=== PATIENT | female | born 1960 | race Two or more races ===

== ENCOUNTER 2018-06-09 11:17 | Outpatient (CLI) | payer OTHER | END 2018-06-09 12:00 | disposition home or self-care (01) | LOC: NUCLEAR 11:17 | DX: M81.0 Age-related osteoporosis without current pathological fracture (principal) ==

== ENCOUNTER → 2018-06-09 | Outpatient (CLI) | payer OTHER | END | disposition home or self-care (01) | LOC: MAMO-SONO 10:15 | DX: Z12.31 Encounter for screening mammogram for malignant neoplasm of breast (principal); N60.11 Diffuse cystic mastopathy of right breast; N60.12 Diffuse cystic mastopathy of left breast ==

== ENCOUNTER 2018-08-15 14:04 | Outpatient (CLI) | payer OTHER | END 2018-08-15 14:14 | disposition home or self-care (01) | LOC: RAD 14:04 | DX: M79.671 Pain in right foot (principal) ==

== ENCOUNTER 2018-12-01 12:17 | Outpatient (CLI) | payer OTHER | END 2018-12-01 13:00 | disposition home or self-care (01) | LOC: SONOGRAMA 12:17 | DX: M25.571 Pain in right ankle and joints of right foot (principal) ==

== ENCOUNTER 2020-11-13 10:14 | Outpatient (CLI) | payer OTHER | END 2020-11-13 10:45 | disposition home or self-care (01) | LOC: TOM 10:14 | PROVIDERS: ATTEND Urology | DX: R31.0 Gross hematuria (principal) ==

== ENCOUNTER 2021-01-04 02:25 | Emergency (ER) | payer OTHER ==
[~2021-01-04] VITALS: Ht 152.4 cm; Wt 78.0 kg
[2021-01-04] MEDS ORDERED: HYZAAR 100-12.1 EACH (02:43)
[2021-01-04] MEDS ORDERED: NORVASC5 MG (02:43)
[2021-01-04] MEDS ORDERED: BACTRIM DS TAB1 EACH PO (05:11)
[2021-01-04] MEDS ORDERED: TAMS0.4C PO (05:11)
[2021-01-04] MEDS ORDERED: KETO10TA2 PO (05:11)
[2021-01-04] MEDS ORDERED: CIPRO500 MG PO (05:13)
== END 2021-01-04 05:47 | disposition home or self-care (01) ==
LOC: ER 02:25
DX: N20.1 Calculus of ureter (principal); M54.5 Low back pain

== ENCOUNTER 2021-01-06 13:12 | Day surgery (SDC) | payer OTHER ==
[~2021-01-06 13:12] MED LIST: BACTRIM DS TAB1 EACH PO; CIPRO500 MG PO; HYZAAR 100-12.1 EACH; KETO10TA2 PO; NORVASC5 MG; TAMS0.4C PO
== END 2021-01-06 22:30 | disposition home or self-care (01) ==
LOC: CIR.AMB 13:12
PROVIDERS: ATTEND Urology
DX: N20.1 Calculus of ureter (principal); Z20.822 Contact with and (suspected) exposure to COVID-19

== ENCOUNTER → 2021-01-15 08:22 | Outpatient (CLI) | payer OTHER | END | disposition home or self-care (01) | LOC: LAB 08:22 | PROVIDERS: ATTEND Urology | DX: N20.0 Calculus of kidney (principal) ==

== ENCOUNTER 2021-01-30 09:19 | Outpatient (CLI) | payer OTHER | END 2021-01-30 09:25 | disposition home or self-care (01) | LOC: LAB 09:19 | PROVIDERS: ATTEND Urology | DX: N20.1 Calculus of ureter (principal) ==

== ENCOUNTER 2021-03-12 08:31 | Outpatient (CLI) | payer OTHER | END 2021-03-12 08:32 | disposition home or self-care (01) | LOC: LAB 08:31 | PROVIDERS: ATTEND Urology | DX: N20.1 Calculus of ureter (principal) ==

== ENCOUNTER 2021-07-01 09:14 | Outpatient (CLI) | payer OTHER | END 2021-07-01 09:30 | disposition home or self-care (01) | LOC: MAMO-SONO 09:14 | PROVIDERS: ATTEND Internal Medicine Hematology & Oncology | DX: Z80.3 Family history of malignant neoplasm of breast (principal) ==

== ENCOUNTER 2021-07-07 13:34 | Outpatient (CLI) | payer OTHER | END 2021-07-07 13:51 | disposition home or self-care (01) | LOC: RAD 13:34 | PROVIDERS: ATTEND Specialist | DX: G54.2 Cervical root disorders, not elsewhere classified (principal); M40.202 Unspecified kyphosis, cervical region; M65.222 Calcific tendinitis, left upper arm ==

== ENCOUNTER 2022-07-15 14:26 | Outpatient (CLI) | payer OTHER | END 2022-07-15 14:39 | disposition home or self-care (01) | LOC: MAMO-SONO 14:26 | PROVIDERS: ATTEND Obstetrics & Gynecology | DX: N60.11 Diffuse cystic mastopathy of right breast (principal); N60.12 Diffuse cystic mastopathy of left breast ==

== ENCOUNTER 2024-05-10 08:46 | Outpatient (CLI) | payer OTHER | END 2024-05-10 08:47 | disposition home or self-care (01) | LOC: NUCLEAR 08:46 | PROVIDERS: ATTEND Internal Medicine Cardiovascular Disease | DX: M81.0 Age-related osteoporosis without current pathological fracture (principal) ==